=== PATIENT | female | born 1945 | race Caucasian/White ===

== ENCOUNTER 2018-09-11 15:45 | Emergency (ER) | payer MEDICARE, BC, SELFPAY ==
[2018-09-11 15:47] VITALS: BP 155/77; PULSE 84; RESP 12; TEMP 37; O2SAT 95
--- NOTE | 2018-09-11 15:50 | DI.RAD_ITS ---
SYMPTOM/DIAGNOSIS: PAIN S/P FALL LEFT WRIST: Three views. Comparison is made with 09/10/17. No acute fracture or dislocation is seen. No radiopaque foreign bodies are seen in the soft tissues. There are marked degenerative changes seen at the first carpal metacarpal joint. The bones appear osteopenic. IMPRESSION: No acute abnormality.
--- NOTE | 2018-09-11 15:53 | W.ED.GENAD ---
Discharge Plan Disposition Patient Disposition: HOME Condition: Improving Discharge Details Chief Complaint: Orthopedic Clinical Impression: Left wrist sprain Primary Care Provider: Sabrina Perez ED Provider: Levar Hardin Home Meds and New Rx's Prescriptions: Continued lisinopril 20 mg Tablet 20 mg PO DAILY RF: 0 Discharge Instructions Instructions: Wrist Sprain (ED) Additional Instructions: Rest, ice, elevation to reduce pain and swelling. May use removable splint as needed 5 to 10 days time. Return for any acute concern Medical Decision Making 73-year-old female presents with left wrist pain after fall on outstretched hand 1 hour prior. She does have distal radius tenderness. She is had a previous fracture of that joint. Ice applied and patient referred for Xray. No acute underlying bony fracture seen. Will place in a wrist immobilizer for comfort. Patient understands homecare/return and follow-up precautions HPI General Mode of arrival: ambulatory. Date/Time Provider Initiated Documentation: 09/11/18 15:46. Limitations to Documentation: no limitations. Information obtained by: patient. History of Present Illness 73 year old F presents to the emergency department with the chief complaint of Left wrist pain after fall, described as mild, Quality is described as aching and dull, and is localized to the left and upper extremity. Patient reports no radiation. Patient started experiencing this minute(s) and it has been constant. No relieving factors improve symptom(s), No exacerbating factors reported . Patient notes no other symptoms.. Patient did receive the following treatments prior to arrival, none Related Data Home Medications Medication Instructions Recorded Confirmed lisinopril 20 mg PO DAILY 09/11/18 09/11/18 Allergies Allergy/AdvReac Type Severity Reaction Status Date / Time Penicillins Allergy Unverified 09/11/18 15:50 codeine AdvReac Unverified 09/11/18 15:50 General Stated Complaint: Orthopedic VERN: 4 Review of Systems Review of Systems 6 systems reviewd and otherwise neg [facility] Social History Smoking/Tobacco Use Status: Never Alcohol Intake: current Alcohol Intake frequency: holidays/special occasions only Drug use: Never Substance use type: does not use Do you feel safe at home: Yes Do you feel safe in your relationship?: Yes Exam Narrative Exam Narrative: GEN: awake, alert, oriented 3. Pleasant, well groomed, interactive. HEAD: Normocephalic, atraumatic EYES: PERRL, EOMI CHEST/RESP: Nontender CARDIOVASCULAR: RRR, no murmur, rub heber. 2+ Rad pulse bilateral EXT: Distal radius tenderness to palpation L. 2+ radial pulse bilateral upper extremity. Sensation intact throughout Neuro: Grossly normal neurologic exam, conversant, interactive. Psych: Speech fluent, thoughts congruent, affect normal Course Vital Signs Temperature 37.0 C 09/11/18 15:47 Pulse 84 09/11/18 15:47 Respiratory Rate 12 09/11/18 15:47 Blood Pressure 155/77 H 09/11/18 15:47 Pulse Oximetry 95 09/11/18 15:47 Temperature 37.0 C 09/11/18 15:47 Temperature Source Temporal Artery Scan 09/11/18 15:47 Pulse 84 09/11/18 15:47 Respiratory Rate 12 09/11/18 15:47 Respiratory Effort Non-Labored 09/11/18 15:49 Blood Pressure 155/77 H 09/11/18 15:47 Blood Pressure Position Sitting 09/11/18 15:47 Pulse Oximetry 95 09/11/18 15:47 Oxygen Delivery Method Room Air 09/11/18 15:47 Oxygen Flow Rate 0 09/11/18 15:47 Pain Level 1 09/11/18 15:49
== END 2018-09-11 16:48 | disposition home or self-care (01) ==
PROVIDERS: Emergency Provider Emergency Medicine; PCP Family Medicine
DX: S63.502A Unspecified sprain of left wrist, initial encounter (principal); W01.0XXA Fall on same level from slipping, tripping and stumbling without subsequent striking against object, initial encounter
CPT/HCPCS: 29125; 99283; 73110; 99282; L3908

== ENCOUNTER 2018-10-07 00:51 | Outpatient (CLI) | payer MEDICARE, BC, SELFPAY ==
--- NOTE | 2018-10-07 16:03 | DI.MAMMO_ITS ---
SYMPTOM/DIAGNOSIS: SCREENING, Z12.31 MAMMOGRAMS: Mammograms were interpreted according to the usual protocol including computer analysis with CAD system, tomosynthesis and C view imaging. Comparison is made with 2010. The right breast is composed of fatty density tissue. The left breast shows scattered fibroglandular density in the superior portion of the breast, breast density, Category B. No suspicious masses or suspicious microcalcifications are seen. There has been no significant change. IMPRESSION: Category 1, negative mammogram. Yearly screening mammography is recommended. [facility] ASSESSMENT OF FINDINGS: Negative. Category 1. Patient will receive a letter notifying them of these results. BI-RADS category B. There are scattered areas of fibroglandular density.
== END 2018-10-07 01:11 ==
PROVIDERS: PCP Family Medicine; Visit Provider Family Medicine
DX: Z12.31 Encounter for screening mammogram for malignant neoplasm of breast (principal)
CPT/HCPCS: 77063; 77067